=== PATIENT | female | born 1990 | race Caucasian/White ===

== ENCOUNTER 2017-03-31 23:18 | Emergency (ER) | payer SELFPAY ==
[~2017-03-31] VITALS: Ht 160 cm; Wt 68.1 kg
[2017-04-01] MEDS ORDERED: IBUPROFEN 600MG TABLET PO ONE (02:15)
[2017-04-01] MEDS ORDERED: CYCLOBENZAPRINE 10MG TABLET PO ONE (02:15)
[2017-04-01 05:57] VITALS: BP 118/65
== END 2017-04-01 05:59 | disposition home or self-care (01) ==
LOC: ER 23:18
DX: S43.101A Unspecified dislocation of right acromioclavicular joint, initial encounter (principal); V43.52XA Car driver injured in collision with other type car in traffic accident, initial encounter; Y93.89 Activity, other specified; Y92.414 Local residential or business street as the place of occurrence of the external cause
CPT/HCPCS: 73030; 81025; 99284